=== PATIENT | female | born 1950 | race Caucasian/White ===

== ENCOUNTER → 2016-10-01 | Outpatient (CLI) | payer BC ==
[~2016-10-01] MED LIST: LEVO75TA4 PO; VITA200016 PO
--- NOTE | 2016-10-01 10:42 | REPMRS ---
Patient History The patient states she has not had a clinical breast exam in over a year. Patient is postmenopausal and has history of skin cancer. No known family history of cancer. Digital Woman Screen Mammo: October 01, 2016 - Exam #: [id number] Bilateral CC and MLO view(s) were taken. Technologist: Yojana Victor, Technologist Prior study comparison: August 09, 2014, digital woman screen mammo performed at [facility]. FINDINGS: There are scattered fibroglandular densities. There has been no change in the appearance of the mammogram from the prior studies. There is a mild amount of scattered fibroglandular density which is fairly symmetric. There is no interval development of dominant mass, architectural distortion, or clustered microcalcification suggestive of malignancy. ASSESSMENT: BI-RADS/ACR category 1 mammogram. Negative. Recommendation Routine screening mammogram in 1 year (for women over age 40). This mammogram was interpreted with the aid of an FDA-approved computer-aided dectection system. Electronically Signed By: Ignacio Roe MD 10/01/16 [id number]
--- NOTE | 2016-10-02 13:27 | DEXA ---
AP SPINE L1 - L4 1.283 0.7 2.3 LT FEMUR TOTAL 0.996 -0.1 1.2 RT FEMUR TOTAL 0.994 -0.1 1.2 TOTAL BODY TOTAL OTHER DUAL FEMUR FRAX* ASSESSMENT Risk factors: Tobacco user (current smoker) 10 year probability of fracture Major osteoporotic fracture 7.2 % Hip fracture 1.1 % COMMENTS: Normal bone densitometry of the spine. Normal bone densitometry of the left hip. There is low bone density of the right hip. FOLLOW-UP: Recommendation for the next bone density exam: 2 years. EDEL
== END ==
LOC: M WHC 07:51
PROVIDERS: ATTEND Physician Assistant
DX: Z12.31 Encounter for screening mammogram for malignant neoplasm of breast (principal); Z13.820 Encounter for screening for osteoporosis; Z78.0 Asymptomatic menopausal state
CPT/HCPCS: 77080; G0202

== ENCOUNTER → 2016-12-15 | Outpatient (CLI) | payer BC ==
--- NOTE | 2016-12-18 22:41 | ECHO ---
DATE OF PROCEDURE: 12/15/2016 REFERRING PHYSICIAN: KAI Hamilton INDICATION: Localized edema, aortic valve disorders, nonrheumatic. HEIGHT: 160 cm WEIGHT: 118.4 kg 2D MEASUREMENTS: Left atrium: 4.1 cm Ventricular septum: 1.24 cm Posterior wall: 1.22 cm Left ventricle diastole: 5.2 cm Aortic root: 2.8 cm LVOT: 2.0 cm Inferior vena cava: 1.8 cm (more than 50% respiratory variation). DOPPLER MEASUREMENTS: Aortic valve velocity: 170 cm/s LVOT VTI: 23.0 cm Mitral E velocity: 82.4 cm/s Mitral A velocity: 67.1 cm/s Mitral deceleration time: 285 ms Very mild tricuspid regurgitation. Estimated right ventricle systolic pressure 29 mmHg assuming a right atrial pressure of 5 mmHg. Pulmonary acceleration time: 167 ms MITRAL ANNULAR TISSUE DOPPLER: E prime septal: 5.3 cm/s E prime lateral: 7.1 cm/s DESCRIPTION: Rhythm was sinus bradycardia. Image quality was fair. No pericardial effusion. Some premature ventricular contractions (PVCs) were observed. This is a 2D, M-mode, color flow Doppler and pulse wave Doppler examination that included mitral annular tissue Doppler. CONCLUSIONS: 1. Very mild concentric left ventricle hypertrophy. Normal regional left ventricle (LV) wall motion and wall thickening. Normal LV systolic function. Left ventricular ejection fraction (LVEF) of 60% by visual estimate. Grade 2 LV diastolic dysfunction (pseudonormal LV filling pattern). 2. Mild left atrial dilatation. 3. Probably normal three-cuspid aortic valve. Moderately technically difficult visualization of the aortic valve. 4. Suggestive of central venous pressure of approximately 5 mmHg. 5. Otherwise normal appearing echocardiogram Doppler.
== END ==
LOC: M CARPUL 08:27
PROVIDERS: ATTEND Physician Assistant
DX: R60.9 Edema, unspecified (principal); I35.8 Other nonrheumatic aortic valve disorders

== ENCOUNTER → 2017-06-15 | Outpatient (REF) | payer BC ==
[2017-06-15 20:19] LABS: HEMATOCRIT 40.4 % (36.0-47.0); HEMOGLOBIN 12.8 g/dl (12.0-16.0); MEAN CORPUSCULAR HEMOGLOBIN 30.1 pg (27.0-33.0); MEAN CORPUSCULAR HGB CONC 31.7 g/dl (32.0-36.5); MEAN CORPUSCULAR VOLUME 95.1 fl (80.0-96.0); PLATELET COUNT, AUTOMATED 296 10^3/uL (150-450); RED BLOOD COUNT 4.25 10^6/uL (4.00-5.40); RED CELL DISTRIBUTION WIDTH 14.2 % (11.5-14.5); WHITE BLOOD COUNT 7.7 10^3/uL (4.0-10.0)
[2017-06-15 20:30] LABS: TOTAL 25(OH) VITAMIN D 13.8 NG/ML (30.0-100.0)
[2017-06-15 20:38] LABS: ALBUMIN 3.7 GM/DL (3.2-5.2); ALBUMIN/GLOBULIN RATIO 1.12 (1.00-1.93); ALKALINE PHOSPHATASE 95 U/L (45-117); ALT/SGPT 31 U/L (12-78); ANION GAP 5 MEQ/L (8-16); AST/SGOT 18 U/L (7-37); BILIRUBIN,TOTAL 0.2 MG/DL (0.2-1.0); BLOOD UREA NITROGEN 14 MG/DL (7-18); CALCIUM LEVEL 8.8 MG/DL (8.8-10.2); CARBON DIOXIDE LEVEL 31 MEQ/L (21-32); CHLORIDE LEVEL 106 MEQ/L (98-107); CREATININE FOR GFR 0.65 MG/DL (0.55-1.30); GLOMERULAR FILTRATION RATE > 60.0 (>45); GLUCOSE, FASTING 86 MG/DL (70-100); POTASSIUM SERUM 4.3 MEQ/L (3.5-5.1); SODIUM LEVEL 142 MEQ/L (136-145)
== END ==
LOC: M SFHCADAM 16:32
DX: E03.9 Hypothyroidism, unspecified (principal); I35.8 Other nonrheumatic aortic valve disorders; F17.201 Nicotine dependence, unspecified, in remission; E55.9 Vitamin D deficiency, unspecified
CPT/HCPCS: 84443

== ENCOUNTER → 2018-07-22 | Outpatient (CLI) | payer BC ==
--- NOTE | 2018-07-22 15:15 | REPMRS ---
Patient History The patient states she had a clinical breast exam in 06/2018. Patient is postmenopausal and has history of basal cancer. No known family history of cancer. No Hormone Replacement Therapy 3D TOMOSYNTHESIS WAS PERFORMED. Digital Woman Screen Mammo: July 22, 2018 - Exam #: [id number] Bilateral CC and MLO view(s) were taken. Technologist: Kitty eVlez, Technologist Prior study comparison: October 01, 2016, digital woman screen mammo performed at [facility]. August 09, 2014, digital woman screen mammo performed at [facility]. FINDINGS: There are scattered fibroglandular densities. There has been no change in the appearance of the mammogram from the prior studies. There is a mild amount of residual fibroglandular tissue which is fairly symmetric. There is no interval development of dominant mass, architectural distortion, or clustered microcalcification suggestive of malignancy. Assessment: BI-RADS/ACR category 1 mammogram. Negative Mammogram. Recommendation Routine screening mammogram in 1 year (for women over age 40). This mammogram was interpreted with the aid of an FDA-approved computer-aided dectection system. Electronically Signed By: Michael Wood MD 07/22/18 [id number]
== END ==
LOC: M WHC 13:09
PROVIDERS: ATTEND Nurse Practitioner Women's Health
DX: Z12.31 Encounter for screening mammogram for malignant neoplasm of breast (principal); Z85.828 Personal history of other malignant neoplasm of skin

== ENCOUNTER → 2018-07-22 | Outpatient (REF) | payer BC ==
[2018-07-26 14:53] LABS: HPV HYBRID CAPTURE II Negative (Negative)
== END ==
LOC: M SFHCWAGY 13:48
PROVIDERS: ATTEND Nurse Practitioner Women's Health
DX: Z12.4 Encounter for screening for malignant neoplasm of cervix (principal)
CPT/HCPCS: 87624; G0123

== ENCOUNTER → 2018-10-06 | Outpatient (CLI) | payer BC ==
--- NOTE | 2018-10-06 10:10 | REP ---
LOW DOSE LUNG SCREENING CT: Low dose lung screening CT performed in the axial plane. There is diffuse interstitial fibrosis. Subpleural 3 mm nodular density is seen in the right upper lobe on image 11. Another similar-appearing nodular density is seen on image 13, and another is seen on image 15 in the posterior right upper lobe. There is a 4 mm subpleural nodular opacity in the posterior right upper lobe on image 20. There is a tiny 2 mm nodular opacity laterally on image 26 in the right upper lobe. In the region of the minor fissure, there is an ill-defined 5 mm nodular opacity on image 38. This could be related to fissural thickening. There are two adjacent calcified granulomas in the right lower lobe on image 60. No other definite pulmonary nodules are seen. No mediastinal contour abnormality is seen. The heart is not enlarged. There is no pleural effusion. There are degenerative changes of the spine. IMPRESSION: Several subcentimeter nodular opacities in the right lung as discussed in detail above. Followup CT recommended in 12 months. Lung RADS category 2 benign findings. Electronically Signed by Michael Wood MD 10/06/2018 04:37 P
== END ==
LOC: M RAD 08:05
PROVIDERS: ATTEND Physician Assistant
DX: F17.210 Nicotine dependence, cigarettes, uncomplicated (principal)

== ENCOUNTER → 2018-10-06 | Outpatient (REF) | payer BC ==
[2018-10-06 12:40] LABS: HEMATOCRIT 40.6 % (36.0-47.0); HEMOGLOBIN 12.7 g/dl (12.0-15.5); MEAN CORPUSCULAR HEMOGLOBIN 31.1 pg (27.0-33.0); MEAN CORPUSCULAR HGB CONC 31.3 g/dl (32.0-36.5); MEAN CORPUSCULAR VOLUME 99.3 fl (80.0-96.0); PLATELET COUNT, AUTOMATED 282 10^3/uL (150-450); RED BLOOD COUNT 4.09 10^6/uL (4.00-5.40); WHITE BLOOD COUNT 6.3 10^3/uL (4.0-10.0)
[2018-10-06 12:47] LABS: ALBUMIN 3.6 GM/DL (3.2-5.2); ALT/SGPT 39 U/L (12-78); BILIRUBIN,DIRECT 0.1 MG/DL (0.0-0.2); BILIRUBIN,TOTAL 0.3 MG/DL (0.2-1.0); BLOOD UREA NITROGEN 16 MG/DL (7-18); CARBON DIOXIDE LEVEL 32 MEQ/L (21-32); CHLORIDE LEVEL 107 MEQ/L (98-107); GLOMERULAR FILTRATION RATE > 60.0 (>45); GLUCOSE, FASTING 72 MG/DL (70-100); PHOSPHORUS LEVEL 3.8 MG/DL (2.5-4.9); POTASSIUM SERUM 4.6 MEQ/L (3.5-5.1); SODIUM LEVEL 146 MEQ/L (136-145); TOTAL PROTEIN 6.8 GM/DL (6.4-8.2)
== END ==
LOC: M LABDRWAD 12:13
PROVIDERS: ATTEND Podiatrist Foot & Ankle Surgery
DX: Z79.899 Other long term (current) drug therapy (principal); B35.1 Tinea unguium

== ENCOUNTER → 2018-11-17 | Outpatient (REF) | payer BC | LOC: M SFHCWAGY 16:48 | PROVIDERS: ATTEND Nurse Practitioner Women's Health | DX: L29.2 Pruritus vulvae (principal) ==

== ENCOUNTER → 2019-08-01 | Outpatient (REF) | payer BC ==
[2019-08-01 19:33] LABS: HEMATOCRIT 40.4 % (36.0-47.0); HEMOGLOBIN 12.9 g/dl (12.0-15.5); MEAN CORPUSCULAR HEMOGLOBIN 31.1 pg (27.0-33.0); MEAN CORPUSCULAR HGB CONC 31.9 g/dl (32.0-36.5); MEAN CORPUSCULAR VOLUME 97.3 fl (80.0-96.0); PLATELET COUNT, AUTOMATED 275 10^3/uL (150-450); RED BLOOD COUNT 4.15 10^6/uL (4.00-5.40); WHITE BLOOD COUNT 7.3 10^3/uL (4.0-10.0)
[2019-08-01 20:06] LABS: ALBUMIN 3.7 GM/DL (3.2-5.2); ALT/SGPT 40 U/L (12-78); BILIRUBIN,TOTAL 0.3 MG/DL (0.2-1.0); BLOOD UREA NITROGEN 24 MG/DL (7-18); CALCIUM LEVEL 8.7 MG/DL (8.8-10.2); CARBON DIOXIDE LEVEL 33 MEQ/L (21-32); CHLORIDE LEVEL 106 MEQ/L (98-107); CREATININE FOR GFR 0.79 MG/DL (0.55-1.30); FREE T4 1.41 NG/DL (0.76-1.46); GLOMERULAR FILTRATION RATE > 60.0 (>45); GLUCOSE, FASTING 91 MG/DL (70-100); POTASSIUM SERUM 5.2 MEQ/L (3.5-5.1); SODIUM LEVEL 142 MEQ/L (136-145); THYROID STIMULATING HORMONE 0.611 uIU/ML (0.358-3.740); TOTAL PROTEIN 7.3 GM/DL (6.4-8.2)
[2019-08-01 20:08] LABS: TOTAL 25(OH) VITAMIN D 22.1 NG/ML (30.0-100.0)
== END ==
LOC: M SFHCADAM 15:13
PROVIDERS: ATTEND Physician Assistant
DX: J01.90 Acute sinusitis, unspecified (principal); R06.00 Dyspnea, unspecified; E55.9 Vitamin D deficiency, unspecified; F17.201 Nicotine dependence, unspecified, in remission

== ENCOUNTER → 2019-08-01 | Outpatient (CLI) | payer BC ==
--- NOTE | 2019-08-01 17:18 | REP ---
HISTORY: Known lung nodule and tobacco abuse. COMPARISON: No prior plain film examinations for comparison. Previous CT scan of 10/06/2018 showed several subcentimeter sized pulmonary nodules in the right lung for which a one year followup CT was recommended according to the revised Janett Society criteria. All interested parties should review that report. Today's plain film examination of the chest shows mild cardiomegaly. There are no patchy opacities or pleural effusions. The pleural angles are sharp. The osseous structures are within normal limits. IMPRESSION: No evidence of acute cardiopulmonary disease, however, followup for pulmonary nodules is by chest CT according to the revised Janett Society criteria. Electronically Signed by Glen Linda DO 08/01/2019 07:29 P
== END ==
LOC: M ADAMS 15:16
PROVIDERS: ATTEND Physician Assistant
DX: R91.1 Solitary pulmonary nodule (principal); R06.00 Dyspnea, unspecified; F17.201 Nicotine dependence, unspecified, in remission

== ENCOUNTER → 2019-08-29 | Outpatient (REF) | payer BC ==
[2019-08-29 17:14] LABS: ALBUMIN 3.7 GM/DL (3.2-5.2); ALT/SGPT 35 U/L (12-78); BILIRUBIN,TOTAL 0.3 MG/DL (0.2-1.0); BLOOD UREA NITROGEN 14 MG/DL (7-18); CALCIUM LEVEL 9.5 MG/DL (8.8-10.2); CARBON DIOXIDE LEVEL 34 MEQ/L (21-32); CHLORIDE LEVEL 104 MEQ/L (98-107); CHOLESTEROL LEVEL 159 MG/DL (<200); CHOLESTEROL RISK RATIO 1.558 (<5); CREATININE FOR GFR 0.64 MG/DL (0.55-1.30); FREE T4 1.23 NG/DL (0.76-1.46); GLOMERULAR FILTRATION RATE > 60.0 (>45); GLUCOSE, FASTING 96 MG/DL (70-100); HDL CHOLESTEROL 102 MG/DL (>40); LDL CHOLESTEROL 43 MG/DL (<100); NON-HDL-C 57 MG/DL; SODIUM LEVEL 141 MEQ/L (136-145); THYROID STIMULATING HORMONE 0.646 uIU/ML (0.358-3.740); TRIGLYCERIDES LEVEL 70 MG/DL (<150)
[2019-08-29 17:16] LABS: HEMATOCRIT 38.3 % (36.0-47.0); HEMOGLOBIN 12.2 g/dl (12.0-15.5); MEAN CORPUSCULAR HEMOGLOBIN 30.6 pg (27.0-33.0); MEAN CORPUSCULAR HGB CONC 31.9 g/dl (32.0-36.5); PLATELET COUNT, AUTOMATED 267 10^3/uL (150-450); RED BLOOD COUNT 3.99 10^6/uL (4.00-5.40); WHITE BLOOD COUNT 8.1 10^3/uL (4.0-10.0)
== END ==
LOC: M SFHCADAM 12:05
PROVIDERS: ATTEND Physician Assistant
DX: F17.210 Nicotine dependence, cigarettes, uncomplicated (principal); E03.9 Hypothyroidism, unspecified; E66.01 Morbid (severe) obesity due to excess calories

== ENCOUNTER → 2019-10-04 | Outpatient (CLI) | payer BC ==
--- NOTE | 2019-10-05 23:57 | ECHO ---
DATE OF PROCEDURE: 10/04/2019 DATE OF : 1950 AGE: 69 REFERRING PROVIDER: Elisabeth Elizalde PA-C REASON FOR THE STUDY: Shortness of breath, edema, aortic stenosis. 2D MEASUREMENTS: IVS: 1.2 cm LV: 5.8 cm LVPW: 1.2 cm LA: 4.1 cm Aorta: 3.0 cm IVC: 1.9 cm DOPPLER MEASUREMENTS: Peak velocity across the aortic valve: 1.7 meters per second Peak velocity across the LVOT: 1.5 meters per second Mitral E: 1.2, Mitral A: 0.75 with a ratio of 1.5 Maximum tricuspid valve velocity: 2.0 meters per second 2D COMMENTS: 1. Normal left ventricular size, wall thickness, and normal global left ventricular systolic function. The estimated left ventricular systolic ejection fraction is 60-65%. 2. Mildly enlarged left atrium. Normal right atrium and right ventricle noted in limited views. The right ventricular free wall was not well visualized. 3. The atrial septum appeared to be normal without evidence of defect or shunt. 4. Normal aortic root. 5. No pericardial effusion seen. 6. Mildly calcified aortic valve, leaflet excursion appeared to be normal. Normal mitral valve, tricuspid valve. The pulmonic valve and proximal pulmonary artery branches were not well visualized. 7. The inferior vena cava appeared to be normal in size, central venous pressure is probably normal. DOPPLER: It detects trace tricuspid regurgitation. The calculated pulmonary artery systolic pressure was normal. Abnormal relaxation pattern was noted across the mitral valve annulus consistent with features of grade 2 left ventricular diastolic dysfunction. IMPRESSION: 1. Normal global left ventricular systolic function with a mildly enlarged left ventricle. There are some features of left ventricular diastolic dysfunction, grade 2. 2. Aortic valve sclerosis with trivial aortic stenosis but no aortic regurgitation. 3. Isolated mildly dilated left atrium. No mitral regurgitation and/or stenosis detected. 4. Trace tricuspid regurgitation with a normal calculated pulmonary artery systolic pressure. [facility]
== END ==
LOC: M CARPUL 10:59
PROVIDERS: ATTEND Physician Assistant
DX: R06.00 Dyspnea, unspecified (principal)

== ENCOUNTER → 2019-11-14 | Outpatient (REF) | payer BC | LOC: M SFHCWAGY 08:16 | PROVIDERS: ATTEND Nurse Practitioner Women's Health | DX: Z12.4 Encounter for screening for malignant neoplasm of cervix (principal) ==

== ENCOUNTER → 2019-11-14 | Outpatient (CLI) | payer BC ==
--- NOTE | 2019-11-14 16:39 | REPMRS ---
Patient History The patient states she had a clinical breast exam in October 2019.No known family history of cancer. No Hormone Replacement Therapy Digital Woman Screen Mammo: November 14, 2019 - Exam #: [id number] Bilateral CC and MLO view(s) were taken. Technologist: Kary Pastrana, Technologist Prior study comparison: July 22, 2018, bilateral digital woman screen mammo performed at [facility]. October 01, 2016, digital woman screen mammo performed at [facility]. August 09, 2014, digital woman screen mammo performed at [facility]. FINDINGS: The breast tissue is almost entirely fat. The Volpara volumetric breast density category is: A. There has been no change in the appearance of the mammogram from the prior studies. There is no interval development of dominant mass, architectural distortion, or grouped microcalcification typical of malignancy. 3-D tomosynthesis shows no additional findings. Assessment: BI-RADS/ACR category 1 mammogram. Negative Mammogram. Recommendation Routine screening mammogram of both breasts in 1 year (for women over age 40). This patient's Lifetime Breast Cancer RIsk is estimated at 4.2 %. This mammogram was interpreted with the aid of an FDA-approved computer-aided dectection system. Electronically Signed By: Ignacio Roe MD 11/14/19 [id number]
== END ==
LOC: M WHC 15:08
PROVIDERS: ATTEND Nurse Practitioner Women's Health
DX: Z12.31 Encounter for screening mammogram for malignant neoplasm of breast (principal)

== ENCOUNTER → 2020-08-15 | Outpatient (CLI) | payer BC, MEDICARE ==
--- NOTE | 2020-08-15 08:46 | REP ---
INDICATION: LUNG SCREENING. COMPARISON: 10/06/2018 TECHNIQUE: Axial noncontrast images from the thoracic inlet to the upper abdomen using low-dose lung screening technique (LDCT). As per the protocol only lung window images were sent to the read station for interpretation. FINDINGS: Once again, there are multiple sub cm sized pulmonary nodules seen bilaterally some of which are calcified consistent with incidental granulomas. No new abnormal nodules, masses, or opacities have developed. Grossly, the mediastinum and pulmonary brian are unchanged. Grossly, the imaged upper abdomen and imaged osseous structures are unchanged. There are no pleural or pericardial effusions. IMPRESSION: Lung rads category [address] examination of the chest <Electronically signed by Glen Linda > 08/15/20 [id number]
== END ==
LOC: M RAD 07:54
PROVIDERS: ATTEND Physician Assistant
DX: F17.210 Nicotine dependence, cigarettes, uncomplicated (principal); R91.8 Other nonspecific abnormal finding of lung field

== ENCOUNTER → 2021-02-05 | Outpatient (REF) | payer MEDICARE, BC ==
[2021-02-05 17:57] LABS: HEMATOCRIT 40.7 % (36.0-47.0); HEMOGLOBIN 12.5 g/dl (12.0-15.5); MEAN CORPUSCULAR HEMOGLOBIN 29.4 pg (27.0-33.0); MEAN CORPUSCULAR HGB CONC 30.7 g/dl (32.0-36.5); MEAN CORPUSCULAR VOLUME 95.8 fl (80.0-96.0); PLATELET COUNT, AUTOMATED 436 10^3/uL (150-450); RED BLOOD COUNT 4.25 10^6/uL (4.00-5.40); WHITE BLOOD COUNT 7.7 10^3/uL (4.0-10.0)
[2021-02-05 18:34] LABS: ALBUMIN 3.5 GM/DL (3.2-5.2); ALT/SGPT 33 U/L (12-78); BILIRUBIN,TOTAL 0.3 MG/DL (0.2-1.0); BLOOD UREA NITROGEN 10 MG/DL (7-18); CALCIUM LEVEL 9.7 MG/DL (8.8-10.2); CARBON DIOXIDE LEVEL 33 MEQ/L (21-32); CHLORIDE LEVEL 101 MEQ/L (98-107); CHOLESTEROL LEVEL 151 MG/DL (<200); CHOLESTEROL RISK RATIO 1.606 (<5); FREE T4 1.47 NG/DL (0.76-1.46); GLOMERULAR FILTRATION RATE > 60.0 (>39); GLUCOSE, FASTING 88 MG/DL (70-100); HDL CHOLESTEROL 94 MG/DL (>40); LDL CHOLESTEROL 47 MG/DL (<100); NON-HDL-C 57 MG/DL; SODIUM LEVEL 138 MEQ/L (136-145); THYROID STIMULATING HORMONE 0.367 uIU/ML (0.358-3.740); TOTAL PROTEIN 7.8 GM/DL (6.4-8.2); TRIGLYCERIDES LEVEL 52 MG/DL (<150)
== END ==
LOC: M SFHCADAM 11:53
PROVIDERS: ATTEND Physician Assistant
DX: R14.1 Gas pain (principal); E03.9 Hypothyroidism, unspecified; F17.210 Nicotine dependence, cigarettes, uncomplicated; L98.9 Disorder of the skin and subcutaneous tissue, unspecified
CPT/HCPCS: 80053; 80061; 84439; 84443; 85027; G0463

== ENCOUNTER 2021-03-24 13:51 | Emergency (ER) | payer MEDICARE, BC ==
[~2021-03-24] VITALS: Ht 160 cm; Wt 123.1 kg
[2021-03-24 22:56] VITALS: BP 148/72
[2021-03-24] MEDS ORDERED: METH-1164 PO (23:02)
[2021-03-24] MEDS ORDERED: DICL20GE TP (23:04)
[2021-03-24] MEDS ORDERED: methocarbamoL 500 MG TAB PO ONE (23:15)
== END 2021-03-24 23:22 | disposition home or self-care (01) ==
LOC: M ED 13:51
DX: M76.32 Iliotibial band syndrome, left leg (principal); M51.37 Other intervertebral disc degeneration, lumbosacral region; E03.9 Hypothyroidism, unspecified; Z88.8 Allergy status to other drugs, medicaments and biological substances; Z79.890 Hormone replacement therapy; Z79.899 Other long term (current) drug therapy

== ENCOUNTER → 2022-03-26 | Outpatient (REF) | payer MEDICARE ==
[~2022-03-26] MED LIST changes: +DICL20GE TP; +METH-1164 PO
[2022-03-26 13:53] LABS: HEMATOCRIT 41.2 % (36.0-47.0); HEMOGLOBIN 12.2 g/dl (12.0-15.5); MEAN CORPUSCULAR HGB CONC 29.6 g/dl (32.0-36.5); MEAN CORPUSCULAR VOLUME 98.1 fl (80.0-96.0); PLATELET COUNT, AUTOMATED 290 10^3/uL (150-450)
[2022-03-26 15:10] LABS: THYROID STIMULATING HORMONE 1.093 uIU/ML (0.55-4.78)
[2022-03-26 15:13] LABS: ALBUMIN 3.9 G/DL (3.2-5.2); ALKALINE PHOSPHATASE 121 U/L (46-116); ALT/SGPT 31 U/L (7.0-40); AST/SGOT 21 U/L (<34); BILIRUBIN,TOTAL 0.5 MG/DL (0.3-1.2); BLOOD UREA NITROGEN 13 MG/DL (9-23); CARBON DIOXIDE LEVEL 31 MMOL/L (20-31); CHLORIDE LEVEL 103 MMOL/L (98-107); CHOLESTEROL LEVEL 140 MG/DL (<200); CHOLESTEROL RISK RATIO 1.69 (<5); CREATININE FOR GFR 0.62 MG/DL (0.55-1.30); FREE T4 1.56 NG/DL (0.89-1.76); GLOMERULAR FILTRATION RATE > 60.0 (>39); GLUCOSE, FASTING 93 MG/DL (74-106); HDL CHOLESTEROL 82.7 MG/DL (>40); LDL CHOLESTEROL 48.1 MG/DL (<100); NON-HDL-C 57 MG/DL; POTASSIUM SERUM 5.1 MMOL/L (3.5-5.1); SODIUM LEVEL 140 MMOL/L (136-145); TOTAL PROTEIN 7.3 G/DL (5.7-8.2); TRIGLYCERIDES LEVEL 46 MG/DL (<150)
== END ==
LOC: M SFHCADAM 08:24
PROVIDERS: ATTEND Physician Assistant
DX: Z00.00 Encounter for general adult medical examination without abnormal findings (principal); Z12.31 Encounter for screening mammogram for malignant neoplasm of breast; F17.211 Nicotine dependence, cigarettes, in remission; E03.9 Hypothyroidism, unspecified; Z13.220 Encounter for screening for lipoid disorders

== ENCOUNTER → 2022-05-07 | Outpatient (CLI) | payer MEDICARE | LOC: M WHC 07:53 | PROVIDERS: ATTEND Physician Assistant | DX: Z12.31 Encounter for screening mammogram for malignant neoplasm of breast (principal) ==

== ENCOUNTER → 2022-05-07 | Outpatient (CLI) | payer MEDICARE | LOC: M RAD 07:18 | PROVIDERS: ATTEND Physician Assistant | DX: Z12.2 Encounter for screening for malignant neoplasm of respiratory organs (principal); F17.211 Nicotine dependence, cigarettes, in remission; R91.1 Solitary pulmonary nodule ==

== ENCOUNTER → 2022-05-21 | Outpatient (CLI) | payer MEDICARE | LOC: M ADAMS 09:58 | PROVIDERS: ATTEND Physician Assistant | DX: J40 Bronchitis, not specified as acute or chronic (principal); I50.9 Heart failure, unspecified ==

== ENCOUNTER → 2022-05-22 | Outpatient (REF) | payer MEDICARE ==
[2022-05-22 14:03] LABS: BASO # 0.1 10^3/uL (0.0-0.2); BASO % 0.8 % (0.0-1.0); EOS # 0.2 10^3/uL (0.0-0.5); EOS % 2.1 % (0.0-3.0); HEMATOCRIT 40.9 % (36.0-47.0); HEMOGLOBIN 12.3 g/dl (12.0-15.5); LYMPH # 2.1 10^3/uL (1.5-5.0); LYMPH % 27.8 % (24.0-44.0); MEAN CORPUSCULAR HEMOGLOBIN 28.6 pg (27.0-33.0); MEAN CORPUSCULAR HGB CONC 30.1 g/dl (32.0-36.5); MEAN CORPUSCULAR VOLUME 95.1 fl (80.0-96.0); MONO # 0.7 10^3/uL (0.0-0.8); NEUTROPHILS # 4.5 10^3/uL (1.5-8.5); NEUTROPHILS % 59.8 % (36.0-66.0); PLATELET COUNT, AUTOMATED 354 10^3/uL (150-450); WHITE BLOOD COUNT 7.5 10^3/uL (4.0-10.0)
[2022-05-22 14:37] LABS: ALBUMIN 3.6 G/DL (3.2-5.2); ALKALINE PHOSPHATASE 117 U/L (46-116); ALT/SGPT 28 U/L (7.0-40); AST/SGOT 22 U/L (<34); BILIRUBIN,TOTAL 0.4 MG/DL (0.3-1.2); BLOOD UREA NITROGEN 15 MG/DL (9-23); CALCIUM LEVEL 9.1 MG/DL (8.3-10.6); CARBON DIOXIDE LEVEL 35 MMOL/L (20-31); CHLORIDE LEVEL 101 MMOL/L (98-107); CREATININE FOR GFR 0.65 MG/DL (0.55-1.30); GLOMERULAR FILTRATION RATE > 60.0 (>39); GLUCOSE, FASTING 90 MG/DL (74-106); POTASSIUM SERUM 4.8 MMOL/L (3.5-5.1); SODIUM LEVEL 142 MMOL/L (136-145)
== END ==
LOC: M SFHCADAM 10:00
PROVIDERS: ATTEND Physician Assistant
DX: J40 Bronchitis, not specified as acute or chronic (principal); I10 Essential (primary) hypertension

== ENCOUNTER → 2022-05-26 | Outpatient (REF) | payer MEDICARE ==
[2022-05-26 14:26] LABS: BLOOD UREA NITROGEN 20 MG/DL (9-23); CARBON DIOXIDE LEVEL 36 MMOL/L (20-31); CHLORIDE LEVEL 100 MMOL/L (98-107); CREATININE FOR GFR 0.63 MG/DL (0.55-1.30); GLOMERULAR FILTRATION RATE > 60.0 (>39); GLUCOSE, FASTING 94 MG/DL (74-106); POTASSIUM SERUM 4.7 MMOL/L (3.5-5.1); SODIUM LEVEL 141 MMOL/L (136-145)
== END ==
LOC: M SFHCADAM 11:01
PROVIDERS: ATTEND Physician Assistant
DX: I50.9 Heart failure, unspecified (principal)

== ENCOUNTER → 2022-08-18 | Outpatient (CLI) | payer MEDICARE | LOC: M CARPUL 09:55 | PROVIDERS: ATTEND Physician Assistant | DX: I50.9 Heart failure, unspecified (principal) ==

== ENCOUNTER → 2022-10-22 | Outpatient (REF) | payer MEDICARE ==
[2022-10-22 13:44] LABS: HEMATOCRIT 40.4 % (36.0-47.0); HEMOGLOBIN 12.7 g/dl (12.0-15.5); MEAN CORPUSCULAR HEMOGLOBIN 29.8 pg (27.0-33.0); MEAN CORPUSCULAR HGB CONC 31.4 g/dl (32.0-36.5); MEAN CORPUSCULAR VOLUME 94.8 fl (80.0-96.0); PLATELET COUNT, AUTOMATED 350 10^3/uL (150-450); RED BLOOD COUNT 4.26 10^6/uL (4.00-5.40); WHITE BLOOD COUNT 7.6 10^3/uL (4.0-10.0)
[2022-10-22 13:51] LABS: ALBUMIN 3.5 G/DL (3.2-5.2); ALKALINE PHOSPHATASE 96 U/L (46-116); ALT/SGPT 27 U/L (7.0-40); AST/SGOT 17 U/L (<34); BILIRUBIN,TOTAL 0.4 MG/DL (0.3-1.2); BLOOD UREA NITROGEN 19 MG/DL (9-23); CALCIUM LEVEL 10.1 MG/DL (8.3-10.6); CARBON DIOXIDE LEVEL 37 MMOL/L (20-31); CHLORIDE LEVEL 96 MMOL/L (98-107); CREATININE FOR GFR 0.58 MG/DL (0.55-1.30); GLOMERULAR FILTRATION RATE > 60.0 (>39); GLUCOSE, FASTING 101 MG/DL (74-106); SODIUM LEVEL 136 MMOL/L (136-145); TOTAL PROTEIN 7.2 G/DL (5.7-8.2)
== END ==
LOC: M SFHCADAM 08:22
PROVIDERS: ATTEND Physician Assistant
DX: R60.9 Edema, unspecified (principal); I10 Essential (primary) hypertension

== ENCOUNTER → 2023-05-27 | Outpatient (CLI) | payer MEDICARE | LOC: M WHC 06:54 | PROVIDERS: ATTEND Physician Assistant | DX: Z12.31 Encounter for screening mammogram for malignant neoplasm of breast (principal) ==

== ENCOUNTER → 2023-06-04 | Outpatient (REF) | payer MEDICARE ==
[2023-06-04 14:17] LABS: BASO % 0.4 % (0.0-1.0); EOS # 0.1 10^3/uL (0.0-0.5); EOS % 1.6 % (0.0-3.0); HEMATOCRIT 40.6 % (36.0-47.0); LYMPH # 1.3 10^3/uL (1.5-5.0); LYMPH % 17.4 % (24.0-44.0); MEAN CORPUSCULAR HEMOGLOBIN 30.5 pg (27.0-33.0); MEAN CORPUSCULAR VOLUME 95.3 fl (80.0-96.0); MONO # 0.8 10^3/uL (0.0-0.8); MONO % 9.8 % (2.0-8.0); NEUTROPHILS # 5.4 10^3/uL (1.5-8.5); NEUTROPHILS % 70.4 % (36.0-66.0); PLATELET COUNT, AUTOMATED 347 10^3/uL (150-450); RED BLOOD COUNT 4.26 10^6/uL (4.00-5.40); WHITE BLOOD COUNT 7.7 10^3/uL (4.0-10.0)
[2023-06-04 14:44] LABS: ALBUMIN 3.8 G/DL (3.2-5.2); ALKALINE PHOSPHATASE 81 U/L (46-116); ALT/SGPT 24 U/L (7.0-40); AST/SGOT 16 U/L (<34); BILIRUBIN,TOTAL 0.5 MG/DL (0.3-1.2); BLOOD UREA NITROGEN 19 MG/DL (9-23); CALCIUM LEVEL 9.3 MG/DL (8.3-10.6); CARBON DIOXIDE LEVEL 32 MMOL/L (20-31); CHLORIDE LEVEL 100 MMOL/L (98-107); CHOLESTEROL LEVEL 130 MG/DL (<200); CHOLESTEROL RISK RATIO 1.88 (<5); CREATININE FOR GFR 0.69 MG/DL (0.55-1.30); GLOMERULAR FILTRATION RATE > 60.0 (>39); GLUCOSE, FASTING 86 MG/DL (74-106); HDL CHOLESTEROL 68.9 MG/DL (>40); LDL CHOLESTEROL 47.5 MG/DL (<100); NON-HDL-C 61.1 MG/DL; SODIUM LEVEL 136 MMOL/L (136-145); TOTAL PROTEIN 7.5 G/DL (5.7-8.2); TRIGLYCERIDES LEVEL 68 MG/DL (<150)
[2023-06-04 14:45] LABS: CREATININE, URINE 22.6 MG/DL; MALB URINE SIEMENS < 3.0 MG/L; MAU/CREAT RATIO 13.2 MCG/MG (0.0-30.0)
[2023-06-04 15:32] LABS: HEMOGLOBIN A1c 5.4 % (4.0-6.0)
== END ==
LOC: M SFHCADAM 11:29
PROVIDERS: ATTEND Physician Assistant
DX: I10 Essential (primary) hypertension (principal); E03.9 Hypothyroidism, unspecified; F17.211 Nicotine dependence, cigarettes, in remission; K58.0 Irritable bowel syndrome with diarrhea

== ENCOUNTER → 2023-07-15 | Outpatient (CLI) | payer MEDICARE | LOC: M RAD 08:00 | PROVIDERS: ATTEND Physician Assistant | DX: Z12.2 Encounter for screening for malignant neoplasm of respiratory organs (principal); F17.210 Nicotine dependence, cigarettes, uncomplicated; R91.1 Solitary pulmonary nodule ==

== ENCOUNTER → 2024-01-06 | Outpatient (REF) | payer MEDICARE | LOC: M SFHCADAM 15:48 | PROVIDERS: ATTEND Physician Assistant | DX: I48.91 Unspecified atrial fibrillation (principal) ==

== ENCOUNTER → 2024-01-07 | Outpatient (REF) | payer MEDICARE ==
[2024-01-07 12:27] LABS: BASO # 0.1 10^3/uL (0.0-0.2); EOS # 0.3 10^3/uL (0.0-0.5); EOS % 4.3 % (0.0-3.0); HEMATOCRIT 36.5 % (36.0-47.0); HEMOGLOBIN 11.2 g/dl (12.0-15.5); LYMPH # 1.2 10^3/uL (1.5-5.0); LYMPH % 17.2 % (24.0-44.0); MEAN CORPUSCULAR HGB CONC 30.7 g/dl (32.0-36.5); MEAN CORPUSCULAR VOLUME 97.9 fl (80.0-96.0); MONO # 0.7 10^3/uL (0.0-0.8); MONO % 9.7 % (2.0-8.0); NEUTROPHILS # 4.6 10^3/uL (1.5-8.5); NEUTROPHILS % 67.5 % (36.0-66.0); PLATELET COUNT, AUTOMATED 317 10^3/uL (150-450); RED BLOOD COUNT 3.73 10^6/uL (4.00-5.40); WHITE BLOOD COUNT 6.8 10^3/uL (4.0-10.0)
[2024-01-07 12:32] LABS: PARTIAL THROMBOPLASTIN TIME 34.4 SECONDS (24.8-34.2); PROTHROMBIN TIME 12.9 SECONDS (12.5-14.5)
[2024-01-07 12:34] LABS: ALBUMIN 3.4 G/DL (3.2-5.2); ALKALINE PHOSPHATASE 172 U/L (46-116); ALT/SGPT 71 U/L (7.0-40); AST/SGOT 34 U/L (<34); BILIRUBIN,TOTAL 0.4 MG/DL (0.3-1.2); BLOOD UREA NITROGEN 14 MG/DL (9-23); CALCIUM LEVEL 9.1 MG/DL (8.3-10.6); CARBON DIOXIDE LEVEL 34 MMOL/L (20-31); CHLORIDE LEVEL 108 MMOL/L (98-107); CREATININE FOR GFR 0.71 MG/DL (0.55-1.30); GLOMERULAR FILTRATION RATE > 60.0 (>39); GLUCOSE, FASTING 96 MG/DL (74-106); MAGNESIUM LEVEL 2.1 MG/DL (1.8-2.4); POTASSIUM SERUM 4.3 MMOL/L (3.5-5.1); SODIUM LEVEL 142 MMOL/L (136-145)
[2024-01-07 12:36] LABS: THYROID STIMULATING HORMONE 1.771 uIU/ML (0.55-4.78)
[2024-01-07 12:37] LABS: FREE T4 1.28 NG/DL (0.89-1.76)
== END ==
LOC: M SFHCADAM 08:10
PROVIDERS: ATTEND Physician Assistant
DX: I48.91 Unspecified atrial fibrillation (principal)

== ENCOUNTER → 2024-01-11 | Outpatient (CLI) | payer MEDICARE | LOC: M PLAIMG 14:34 | PROVIDERS: ATTEND Physician Assistant | DX: I48.91 Unspecified atrial fibrillation (principal); I27.20 Pulmonary hypertension, unspecified; I36.1 Nonrheumatic tricuspid (valve) insufficiency ==

== ENCOUNTER → 2024-01-14 | Outpatient (CLI) | payer MEDICARE ==
[~2024-01-14] MED LIST changes: +ELIQ5TAB PO; +FURO40TA2 PO; +HAIR1CHW2 PO; +LEVO150T7 PO; +LOSA50TA28 PO; +SPIR-10 PO; +THERTAB52 PO; +VITATAB73 PO
== END ==
LOC: M ADAMS 08:11
PROVIDERS: ATTEND Family Medicine
DX: I48.91 Unspecified atrial fibrillation (principal); I51.7 Cardiomegaly

== ENCOUNTER → 2024-01-14 | Outpatient (REF) | payer MEDICARE ==
[~2024-01-14] MED LIST changes: -ELIQ5TAB PO; -FURO40TA2 PO; -HAIR1CHW2 PO; -LEVO150T7 PO; -LOSA50TA28 PO; -SPIR-10 PO; -THERTAB52 PO; -VITATAB73 PO
[2024-01-14 13:24] LABS: ALBUMIN 3.7 G/DL (3.2-5.2); ALKALINE PHOSPHATASE 128 U/L (46-116); ALT/SGPT 40 U/L (7.0-40); AST/SGOT 20 U/L (<34); BILIRUBIN,TOTAL 0.3 MG/DL (0.3-1.2); BLOOD UREA NITROGEN 13 MG/DL (9-23); CALCIUM LEVEL 9.1 MG/DL (8.3-10.6); CARBON DIOXIDE LEVEL 34 MMOL/L (20-31); CHLORIDE LEVEL 103 MMOL/L (98-107); GLOMERULAR FILTRATION RATE > 60.0 (>39); GLUCOSE, FASTING 87 MG/DL (74-106); POTASSIUM SERUM 3.8 MMOL/L (3.5-5.1); SODIUM LEVEL 141 MMOL/L (136-145); TOTAL PROTEIN 7.5 G/DL (5.7-8.2)
== END ==
LOC: M SFHCADAM 08:10
PROVIDERS: ATTEND Family Medicine
DX: I48.91 Unspecified atrial fibrillation (principal); E87.6 Hypokalemia; R74.8 Abnormal levels of other serum enzymes; I50.30 Unspecified diastolic (congestive) heart failure

== ENCOUNTER 2024-02-09 11:40 | Day surgery (SDC) | payer MEDICARE ==
[~2024-02-09] VITALS: Ht 160 cm; Wt 121.8 kg
[~2024-02-09 11:40] MED LIST changes: +ELIQ5TAB PO; +FURO40TA2 PO; +HAIR1CHW2 PO; +LEVO150T7 PO; +LOSA50TA28 PO; +NS 250 ML IV ONE; +SPIR-10 PO; +THERTAB52 PO; +VITATAB73 PO
[2024-02-09 12:17] VITALS: TEMP 97.8
[2024-02-09] MEDS ORDERED: LIDOCAINE 2% 100MG/5ML SDV (FOR ANES.) As Ordered ONE (13:23)
[2024-02-09] MEDS ORDERED: propofoL 200 MG/20 ML VIAL As Ordered ONE (13:23)
[2024-02-09 14:40] VITALS: BP 120/75; O2SAT 99
== END 2024-02-09 14:46 | disposition home or self-care (01) ==
LOC: M OPP 11:40
PROVIDERS: ATTEND Surgery
DX: D12.8 Benign neoplasm of rectum (principal); I48.91 Unspecified atrial fibrillation; I10 Essential (primary) hypertension; E03.9 Hypothyroidism, unspecified; Z79.899 Other long term (current) drug therapy; Z79.01 Long term (current) use of anticoagulants; Z79.890 Hormone replacement therapy; Z88.6 Allergy status to analgesic agent; Z85.828 Personal history of other malignant neoplasm of skin; Z87.891 Personal history of nicotine dependence

== ENCOUNTER → 2024-03-10 | Outpatient (CLI) | payer MEDICARE ==
[~2024-03-10] MED LIST changes: +LIQUID POLIBAR PLUS 105% w/v 750ML BTL As Ordered ONE; -NS 250 ML IV ONE
== END ==
LOC: M RAD 10:34
PROVIDERS: ATTEND Surgery
DX: R19.5 Other fecal abnormalities (principal); R19.7 Diarrhea, unspecified; K57.30 Diverticulosis of large intestine without perforation or abscess without bleeding; K56.609 Unspecified intestinal obstruction, unspecified as to partial versus complete obstruction
CPT/HCPCS: 74270; G0399

== ENCOUNTER → 2024-05-02 | Outpatient (CLI) | payer MEDICARE ==
[~2024-05-02] MED LIST changes: -LIQUID POLIBAR PLUS 105% w/v 750ML BTL As Ordered ONE
== END ==
LOC: M ADAMS 11:59
PROVIDERS: ATTEND Physician Assistant
DX: J20.9 Acute bronchitis, unspecified (principal)

== ENCOUNTER → 2024-05-04 | Outpatient (REF) | payer MEDICARE ==
[2024-05-04 13:09] LABS: ALKALINE PHOSPHATASE 111 U/L (35-104); ALT/SGPT 32 U/L (7.0-40); AST/SGOT 18 U/L (<34); BILIRUBIN,TOTAL 0.4 MG/DL (0.3-1.2); BLOOD UREA NITROGEN 14 MG/DL (9-23); CALCIUM LEVEL 9.8 MG/DL (8.3-10.6); CARBON DIOXIDE LEVEL 34 MMOL/L (20-31); CHLORIDE LEVEL 103 MMOL/L (98-107); CREATININE FOR GFR 0.65 MG/DL (0.55-1.30); GLOMERULAR FILTRATION RATE > 60.0 (>39); GLUCOSE, FASTING 101 MG/DL (74-106); MAGNESIUM LEVEL 2.2 MG/DL (1.8-2.4); POTASSIUM SERUM 4.2 MMOL/L (3.5-5.1); SODIUM LEVEL 141 MMOL/L (136-145); TOTAL PROTEIN 7.9 G/DL (5.7-8.2)
[2024-05-04 13:10] LABS: HEMATOCRIT 40.5 % (36.0-47.0); HEMOGLOBIN 12.9 g/dl (12.0-15.5); MEAN CORPUSCULAR HEMOGLOBIN 31.3 pg (27.0-33.0); MEAN CORPUSCULAR HGB CONC 31.9 g/dl (32.0-36.5); MEAN CORPUSCULAR VOLUME 98.3 fl (80.0-96.0); PLATELET COUNT, AUTOMATED 405 10^3/uL (150-450); RED BLOOD COUNT 4.12 10^6/uL (4.00-5.40); WHITE BLOOD COUNT 12.1 10^3/uL (4.0-10.0)
== END ==
LOC: M SFHCADAM 08:11
PROVIDERS: ATTEND Physician Assistant
DX: E87.6 Hypokalemia (principal); R74.8 Abnormal levels of other serum enzymes; E03.9 Hypothyroidism, unspecified; I27.20 Pulmonary hypertension, unspecified; I48.91 Unspecified atrial fibrillation; R60.0 Localized edema

== ENCOUNTER → 2024-07-17 | Outpatient (CLI) | payer MEDICARE | LOC: M SLEEP 20:00 | PROVIDERS: ATTEND Physician Assistant | DX: G47.33 Obstructive sleep apnea (adult) (pediatric) (principal); G47.61 Periodic limb movement disorder ==

== ENCOUNTER → 2024-07-27 | Outpatient (CLI) | payer MEDICARE | LOC: M RAD 06:38 | PROVIDERS: ATTEND Physician Assistant | DX: Z12.2 Encounter for screening for malignant neoplasm of respiratory organs (principal); F17.211 Nicotine dependence, cigarettes, in remission; R91.1 Solitary pulmonary nodule; J84.10 Pulmonary fibrosis, unspecified; I25.10 Atherosclerotic heart disease of native coronary artery without angina pectoris ==

== ENCOUNTER → 2024-08-10 | Outpatient (REF) | payer MEDICARE ==
[2024-08-10 15:48] LABS: BASO # 0.1 10^3/uL (0.0-0.2); EOS # 0.2 10^3/uL (0.0-0.5); EOS % 3.9 % (0.0-3.0); HEMATOCRIT 38.6 % (36.0-47.0); LYMPH # 1.1 10^3/uL (1.5-5.0); LYMPH % 22.1 % (24.0-44.0); MEAN CORPUSCULAR HEMOGLOBIN 30.5 pg (27.0-33.0); MEAN CORPUSCULAR HGB CONC 31.1 g/dl (32.0-36.5); MONO # 0.4 10^3/uL (0.0-0.8); MONO % 7.5 % (2.0-8.0); NEUTROPHILS # 3.3 10^3/uL (1.5-8.5); NEUTROPHILS % 65.3 % (36.0-66.0); PLATELET COUNT, AUTOMATED 332 10^3/uL (150-450); RED BLOOD COUNT 3.94 10^6/uL (4.00-5.40); WHITE BLOOD COUNT 5.1 10^3/uL (4.0-10.0)
[2024-08-10 16:18] LABS: THYROID STIMULATING HORMONE 0.895 uIU/ML (0.55-4.78)
[2024-08-10 17:47] LABS: ALBUMIN 3.6 G/DL (3.2-5.2); BLOOD UREA NITROGEN 17 MG/DL (9-23); CALCIUM LEVEL 9.6 MG/DL (8.3-10.6); CARBON DIOXIDE LEVEL 28 MMOL/L (20-31); CHLORIDE LEVEL 104 MMOL/L (98-107); CHOLESTEROL LEVEL 140 MG/DL (<200); CHOLESTEROL RISK RATIO 1.74 (<5); CREATININE FOR GFR 0.63 MG/DL (0.55-1.30); GLOMERULAR FILTRATION RATE > 90.0 (>39); GLUCOSE, FASTING 97 MG/DL (74-106); HDL CHOLESTEROL 80.4 MG/DL (>40); LDL CHOLESTEROL 46.8 MG/DL (<100); MAGNESIUM LEVEL 2.2 MG/DL (1.8-2.4); NON-HDL-C 59.6 MG/DL; PHOSPHORUS LEVEL 4.4 MG/DL (2.4-5.1); POTASSIUM SERUM 4.7 MMOL/L (3.5-5.1); SODIUM LEVEL 142 MMOL/L (136-145); TRIGLYCERIDES LEVEL 64 MG/DL (<150)
== END ==
LOC: M LABDRWAD 13:16
PROVIDERS: ATTEND Internal Medicine Cardiovascular Disease
DX: I50.32 Chronic diastolic (congestive) heart failure (principal); E03.9 Hypothyroidism, unspecified; I48.91 Unspecified atrial fibrillation; D64.9 Anemia, unspecified; I25.10 Atherosclerotic heart disease of native coronary artery without angina pectoris

== ENCOUNTER → 2024-08-10 | Outpatient (CLI) | payer MEDICARE | LOC: M EKG 08:15 | PROVIDERS: ATTEND Internal Medicine Cardiovascular Disease | DX: I48.91 Unspecified atrial fibrillation (principal); I49.3 Ventricular premature depolarization ==

== ENCOUNTER → 2024-08-16 | Outpatient (REF) | payer MEDICARE ==
[2024-08-16 14:13] LABS: CALCIUM LEVEL 9.4 MG/DL (8.3-10.6); CREATININE FOR GFR 0.74 MG/DL (0.55-1.30); GLOMERULAR FILTRATION RATE 84.9 (>39); MAGNESIUM LEVEL 2.1 MG/DL (1.8-2.4)
== END ==
LOC: M SFHCADAM 08:24
PROVIDERS: ATTEND Physician Assistant
DX: G47.33 Obstructive sleep apnea (adult) (pediatric) (principal); I48.91 Unspecified atrial fibrillation; F17.211 Nicotine dependence, cigarettes, in remission; I27.20 Pulmonary hypertension, unspecified; Z68.43 Body mass index [BMI] 50.0-59.9, adult; R60.0 Localized edema

== ENCOUNTER → 2024-09-11 | Outpatient (CLI) | payer MEDICARE | LOC: M PLAIMG 13:20 | PROVIDERS: ATTEND Physician Assistant | DX: I48.91 Unspecified atrial fibrillation (principal); I35.8 Other nonrheumatic aortic valve disorders; I36.1 Nonrheumatic tricuspid (valve) insufficiency ==

== ENCOUNTER → 2024-10-26 | Outpatient (CLI) | payer MEDICARE | LOC: M SLEEP 20:00 | PROVIDERS: ATTEND Physician Assistant | DX: G47.33 Obstructive sleep apnea (adult) (pediatric) (principal); G47.61 Periodic limb movement disorder ==

== ENCOUNTER → 2024-12-07 | Outpatient (CLI) | payer MEDICARE | LOC: M WHC 14:41 | PROVIDERS: ATTEND Nurse Practitioner Family | DX: Z12.31 Encounter for screening mammogram for malignant neoplasm of breast (principal) ==

== ENCOUNTER → 2024-12-19 | Outpatient (CLI) | payer MEDICARE | LOC: M CARPUL 07:37 | PROVIDERS: ATTEND Internal Medicine Cardiovascular Disease | DX: I25.10 Atherosclerotic heart disease of native coronary artery without angina pectoris (principal); R94.31 Abnormal electrocardiogram [ECG] [EKG]; I50.32 Chronic diastolic (congestive) heart failure | CPT/HCPCS: 78451; 93017; A9500 ==

== ENCOUNTER → 2024-12-21 | Outpatient (REF) | payer MEDICARE ==
[2024-12-21 17:10] LABS: PLATELET COUNT, AUTOMATED 360 10^3/uL (150-450)
[2024-12-21 17:25] LABS: ESTIMATED AVERAGE GLUCOSE 108.0 MG/DL (60-110)
[2024-12-21 17:40] LABS: ALT/SGPT 23.0 U/L (7.0-40); AST/SGOT 18.0 U/L (<34); CALCIUM LEVEL 9.6 MG/DL (8.3-10.6); CARBON DIOXIDE LEVEL 31.0 MMOL/L (20-31); CHLORIDE LEVEL 103.0 MMOL/L (98-107); CHOLESTEROL LEVEL 136.0 MG/DL (<200); CHOLESTEROL RISK RATIO 2.04 (<5); CREATININE FOR GFR 0.76 MG/DL (0.55-1.30); GLOMERULAR FILTRATION RATE 82.2 (>39); LDL CHOLESTEROL 56.0 MG/DL (<100); NON-HDL-C 69.6 MG/DL; POTASSIUM SERUM 5.5 MMOL/L (3.5-5.1); SODIUM LEVEL 142.0 MMOL/L (136-145); TRIGLYCERIDES LEVEL 68.0 MG/DL (<150)
== END ==
LOC: M SFHCADAM 11:14
PROVIDERS: ATTEND Physician Assistant
DX: I50.30 Unspecified diastolic (congestive) heart failure (principal); Z68.43 Body mass index [BMI] 50.0-59.9, adult; Z12.31 Encounter for screening mammogram for malignant neoplasm of breast; I25.10 Atherosclerotic heart disease of native coronary artery without angina pectoris; G47.33 Obstructive sleep apnea (adult) (pediatric); I48.91 Unspecified atrial fibrillation

== ENCOUNTER → 2024-12-28 | Outpatient (REF) | payer MEDICARE | LOC: M SFHCADAM 09:31 | PROVIDERS: ATTEND Physician Assistant | DX: E87.5 Hyperkalemia (principal) ==

== ENCOUNTER → 2025-01-25 | Outpatient (REF) | payer MEDICARE ==
[2025-01-25 14:50] LABS: CALCIUM LEVEL 8.9 MG/DL (8.3-10.6); CARBON DIOXIDE LEVEL 30.0 MMOL/L (20-31); CHLORIDE LEVEL 104.0 MMOL/L (98-107); CREATININE FOR GFR 0.81 MG/DL (0.55-1.30); GLOMERULAR FILTRATION RATE 76.1 (>39); POTASSIUM SERUM 4.8 MMOL/L (3.5-5.1); SODIUM LEVEL 137.0 MMOL/L (136-145)
[2025-01-25 14:57] LABS: FREE T4 1.29 NG/DL (0.89-1.76)
== END ==
LOC: M SFHCADAM 09:18
PROVIDERS: ATTEND Physician Assistant
DX: E03.9 Hypothyroidism, unspecified (principal); I48.91 Unspecified atrial fibrillation; E87.5 Hyperkalemia

== ENCOUNTER → 2025-03-02 | Outpatient (REF) | payer MEDICARE ==
[2025-03-02 14:39] LABS: PLATELET COUNT, AUTOMATED 344 10^3/uL (150-450)
[2025-03-02 14:47] LABS: ALT/SGPT 48.0 U/L (7.0-40); AST/SGOT 22.0 U/L (<34); CALCIUM LEVEL 9.3 MG/DL (8.3-10.6); CARBON DIOXIDE LEVEL 32.0 MMOL/L (20-31); CHLORIDE LEVEL 101.0 MMOL/L (98-107); CREATININE FOR GFR 0.9 MG/DL (0.55-1.30); GLOMERULAR FILTRATION RATE 66.7 (>39); POTASSIUM SERUM 4.8 MMOL/L (3.5-5.1); SODIUM LEVEL 142.0 MMOL/L (136-145)
== END ==
LOC: M SFHCADAM 10:22
PROVIDERS: ATTEND Physician Assistant
DX: G47.33 Obstructive sleep apnea (adult) (pediatric) (principal); Z68.39 Body mass index [BMI] 39.0-39.9, adult; E66.812 Obesity, class 2; E03.9 Hypothyroidism, unspecified; I10 Essential (primary) hypertension; I48.91 Unspecified atrial fibrillation; I25.10 Atherosclerotic heart disease of native coronary artery without angina pectoris